=== PATIENT | female | born 1955 | race Caucasian/White ===

== ENCOUNTER 2017-07-27 08:09 | Emergency (ER) | payer SELFPAY ==
[~2017-07-27] VITALS: Ht 149.9 cm; Wt 76.0 kg
[2017-07-27 08:16] VITALS: BP 185/94; PULSE 87; RESP 18; TEMP 98.3
[2017-07-27] MEDS ORDERED: METO25TA3 PO (08:33)
[2017-07-27] MEDS ORDERED: GABA600T PO (08:33)
[2017-07-27] MEDS ORDERED: LISI-519 PO (08:33)
[2017-07-27] MEDS ORDERED: NOVO7030P2 SQ (08:33)
[2017-07-27] MEDS ORDERED: BACL10TA PO (08:33)
[2017-07-27] MEDS ORDERED: ATOR80TA45 PO (08:33)
[2017-07-27] MEDS ORDERED: ASPI81TA23 PO (08:33)
[2017-07-27] MEDS ORDERED: CILO100T PO (08:33)
[2017-07-27] MEDS ORDERED: PANT40TA3 PO (08:33)
[2017-07-27] MEDS ORDERED: BACLOFEN 20 MG TAB PO ONE (08:45)
--- NOTE | 2017-07-27 09:20 | PD ---
HPI . To see Dr. Loving Chief Complaint: Back/ Neck Pain or Injury Time Seen by Provider: 09:09 Travel History International Travel<30 days: No Contact w/Intl Traveler<30days: No Traveled to known affect area: No History of Present Illness HPI The patient presents to us with a prescription to see Dr. Loving in his office for a retinal problem. In addition, she is requesting pain medication. She states that she had an appointment to see her primary care provider this morning to address her chronic pain situation but she missed the appointment. History Social History Alcohol Use: No Tobacco Use: No Allergies-Medications (Allergen,Severity, Reaction): Coded Allergies: No Known Allergies (Unverified , 07/27/17) Reported Meds & Prescriptions Reported Meds & Active Scripts Active Reported Atorvastatin (Atorvastatin Calcium) 80 Mg Tab 80 Mg PO HS Aspirin EC (Aspirin) 81 Mg Tabdr 81 Mg PO DAILY Baclofen 10 Mg Tab 10 Mg PO DAILY Metoprolol Tartrate 25 Mg Tab 25 Mg PO BID Lisinopril 5 Mg Tab 5 Mg PO DAILY Pantoprazole (Pantoprazole Sodium) 40 Mg Tab 40 Mg PO BID Gabapentin 600 Mg Tab 600 Mg PO TID Cilostazol 100 Mg Tab 100 Mg PO BID Novolin 70-30 Inj (Insulin Human Isoph/Insulin Regular) 1,000 Unit/10 Ml Vial 50 Units SQ Review of Systems ROS Limitations: Uncooperative Physical Exam Narrative GENERAL: Patient ambulates without difficulty. SKIN: warm/dry. Normal color and turgor. HEAD: Normocephalic. Atraumatic. EYES: Pupils equal and round. No scleral icterus. No injection or drainage. ENT: No nasal bleeding or discharge. Mucous membranes pink and moist. NECK: Trachea midline. Full range of motion without pain.. Delay RESPIRATORY: No accessory muscle use. Clear to auscultation. Breath sounds equal bilaterally. GASTROINTESTINAL: Abdomen soft. Nontender. Bowel sounds present. Nondistended. Delay MUSCULOSKELETAL: No obvious deformities. NEUROLOGICAL: Awake and alert. No obvious cranial nerve deficits. Motor grossly within normal limits. Normal speech. PSYCHIATRIC: Angry. Demanding. Poor insight and judgment. She had appointments with her primary care provider and with an service advocate contact but chose to come here instead. Data Data Last Documented VS Vital Signs Date Time Temp Pulse Resp B/P (MAP) Pulse Ox O2 Delivery O2 Flow Rate FiO2 07/27/17 08:16 98.3 87 18 185/94 (124) Orders Orders Baclofen (Lioresal) (07/27/17 08:45) MDM Medical Screen Exam Complete: Yes Emergency Medical Condition: No Narrative Course A medical screening exam was performed: At the time of evaluation the presenting medical condition was determined not to be of an emergent nature. The patient was given the option of receiving additional care, but declined. Patient was given options for additional community resources from which to obtain care. The Patient Has Been advised to seek medical attention for their presenting complaint. The patient has been advised to return to the ER at any time if an emergent condition develops. Primary Impression: Encounter for medical screening examination Condition: Stable Kat Bergeron MD Jul 27, 2017 09:20
== END 2017-07-27 15:05 | disposition left against medical advice (07) ==
LOC: NEPE 08:09
DX: H57.9 Unspecified disorder of eye and adnexa (principal); G89.29 Other chronic pain
CPT/HCPCS: 99281